=== PATIENT | female | born 1960 ===

== ENCOUNTER 2019-10-19 17:37 | Outpatient (CLI) | payer BC, SELFPAY | END 2019-10-19 17:38 | disposition home or self-care (01) | LOC: CHSLAB 17:39 | PROVIDERS: PCP Family Medicine; Visit Provider Specialist | DX: L01.00 Impetigo, unspecified (principal) | CPT/HCPCS: 87070; 87077; 87186; 87205 ==

== ENCOUNTER 2019-12-24 14:16 | Outpatient (CLI) | payer BC, SELFPAY ==
--- NOTE | ~2019-12-24 | CT_ITS ---
EXAMINATION: CT lung screening DATE: 12/24/2019 14:40 INDICATION: Personal history of nicotine dependence. TECHNIQUE: Computed tomography (CT) of the chest was performed without intravenous contrast. The dose -length product was 70.71 mGy-cm. Automated exposure control and iterative reconstruction technique w ere employed. COMPARISON: None FINDINGS: Heart size normal. No thoracic lymphadenopathy. No pleural or pericardial effusion. Mild at herosclerosis of the aorta and coronary arteries. Visualized aspects of the upper abdomen are unremar kable. There are scattered calcified pulmonary nodules, consistent with chronic granulomatous disease . No endobronchial lesions. No suspicious pulmonary nodules or masses. No acute osseous abnormality. Mild thoracic spondylosis. IMPRESSION: 1. Lung-RADS category 1: Negative. Continue annual screening with noncontrast low-dose chest CT in 12 months. Reviewed, dictated and finalized at location A. IMPRESSION: 1. Lung-RADS category 1: Negative. Continue annual screening with noncontrast l ow-dose chest CT in 12 months.
== END 2019-12-24 14:17 | disposition home or self-care (01) ==
LOC: CHSIMG 14:18
PROVIDERS: PCP Family Medicine; Visit Provider Family Medicine
DX: Z87.891 Personal history of nicotine dependence (principal)
CPT/HCPCS: G0297

== ENCOUNTER 2020-01-07 15:36 | Outpatient (CLI) | payer BC, SELFPAY | END 2020-01-07 15:37 | disposition home or self-care (01) | LOC: CHSLAB 15:37 | PROVIDERS: PCP Nurse Practitioner Family; Visit Provider Nurse Practitioner Family | DX: B95.8 Unspecified staphylococcus as the cause of diseases classified elsewhere (principal) | CPT/HCPCS: 36415; 87040 ==

== ENCOUNTER 2020-01-15 12:48 | Outpatient (CLI) | payer BC, SELFPAY ==
[2020-01-15 13:06] LABS: Basophils Absolute Auto 0.04 K/mm3 (0.00-0.10); Basophils Percent Auto 0.6 % (0.0-1.0); Eosinophils Absolute Auto 0.27 K/mm3 (0.02-0.50); Eosinophils Percent Auto 3.9 % (1.0-6.0); Hematocrit 40.6 % (35.0-49.0); Hemoglobin 13.3 g/dL (12.0-15.0); Immature Granulocyte Absolute 0.01 K/mm3 (0.00-0.00); Immature Granulocyte Percent A 0.1 % (0.0-0.0); Lymphocytes Absolute Auto 2.09 K/mm3 (1.10-4.50); Lymphocytes Percent Auto 29.8 % (18.0-42.0); Mean Corpuscular HGB Conc 32.8 g/dL (32.0-36.0); Mean Corpuscular Hemoglobin 30.6 pg (27.0-31.0); Mean Corpuscular Volume 93.5 fL (78.0-102.0); Mean Platelet Volume 10.5 fl (9.2-11.8); Monocytes Absolute Auto 0.53 K/mm3 (0.10-0.90); Monocytes Percent Auto 7.6 % (2.0-11.0); Neutrophils Absolute Auto 4.1 K/mm3 (1.7-7.2); Platelet Count Result 246 K/mm3 (150-420); Red Blood Count 4.34 M/mm3 (4.20-5.40); Red Cell Distribution Width 12.2 % (11.6-14.4)
[2020-01-15 14:15] LABS: Erythrocyte Sedimentation Rate 23 mm/hr (0-20)
[2020-01-15 14:18] LABS: Alanine Aminotransferase 18 U/L (14-59); Albumin Level 3.6 g/dL (3.4-5.0); Alkaline Phosphatase 129 U/L (46-116); Aspartate Amino Transferase 18 U/L (15-37); Bilirubin,Total 0.6 mg/dL (0.00-1.00); Blood Urea Nitrogen 9 mg/dL (7-18); Calcium 8.9 mg/dL (8.5-10.1); Carbon Dioxide 31 mmol/L (21-32); Chloride 103 mmol/L (98-108); Estimated Glomerular Filt Rate > 60; Glucose 87 mg/dL (70-99); Osmolality Calculated 285 mOsm/kg (285-295); Sodium 139 mmol/L (136-145); Total Protein 7.3 g/dL (6.4-8.2)
== END 2020-01-15 12:49 | disposition home or self-care (01) ==
LOC: CHSLAB 12:50
PROVIDERS: PCP Family Medicine; Visit Provider Specialist
DX: L29.9 Pruritus, unspecified (principal)
CPT/HCPCS: 36415; 80053; 84443; 85025; 85652

== ENCOUNTER 2022-11-19 08:54 | Outpatient (CLI) | payer MEDICAID, SELFPAY ==
--- NOTE | ~2022-11-19 | XR_ITS ---
EXAMINATION: XR knee LT min 4V DATE: 11/19/2022 09:16 INDICATION: Left knee pain. TECHNIQUE: 4 views of left knee including weightbearing views were obtained. COMPARISON: Left knee radiographs 12/29/2012 FINDINGS: Bone alignment is normal. No fracture. There is mild tricompartmental osteoarthritis. There is a large knee joint effusion. IMPRESSION: 1. Mild left knee osteoarthritis. 2. Large left knee joint effusion. Reviewed, dictated and finalized at location A.
== END 2022-11-19 08:55 | disposition home or self-care (01) ==
LOC: CHSIMG 08:57
PROVIDERS: PCP Family Medicine; Visit Provider Orthopaedic Surgery
DX: M25.562 Pain in left knee (principal); M17.12 Unilateral primary osteoarthritis, left knee; M25.462 Effusion, left knee
CPT/HCPCS: 73564

== ENCOUNTER 2022-11-23 08:04 | Outpatient (CLI) | payer MEDICAID, SELFPAY ==
--- NOTE | ~2022-11-23 | MR_ITS ---
EXAMINATION: MR knee LT wo con DATE: 11/23/2022 09:26 INDICATION: Left knee pain. Internal derangement. TECHNIQUE: Magnetic resonance imaging (MRI) of the left knee was performed without intravenous contra st. Sequences included axial PD-weighted FS FSE, coronal PD-weighted FSE and PD-weighted FS FSE, sagi ttal PD-weighted FSE, and sagittal T2-weighted FS FSE. COMPARISON: Left knee radiograph 11/19/2022 FINDINGS: Medial compartment: There is a radial tear of body of medial meniscus. There is partial-thickness cartilage loss of femor al condyle, deep at the medial articular surface where there is moderate subchondral edema-like marro w signal intensity. There is shallow partial-thickness cartilage loss of femoral condyle with mild kenney bchondral edema-like marrow signal intensity medially. Marginal osteophytes are noted. Lateral compartment: The lateral meniscus is normal. Lateral compartment cartilage is normal. Patellofemoral compartment: There is deep cartilage fissuring of patellar medial facet. Trochlear cartilage is normal. Ligaments and tendons: The anterior and posterior cruciate ligaments are normal. There is edema around medial collateral lig ament, consistent with mild sprain. There are changes of prior sprain of fibular collateral ligament characterized by thickening and increased signal intensity proximally. The patellar tendon is normal. Fluid: There is a large knee joint effusion. IMPRESSION: 1. Moderate chondrosis of medial and patellofemoral compartments. 2. Tear of medial meniscus. 3. Mild medial collateral ligament sprain (grade 1). 4. Large knee joint effusion. Reviewed, dictated and finalized at location A.
== END 2022-11-23 08:05 | disposition home or self-care (01) ==
LOC: CHSIMG 08:05
PROVIDERS: PCP Family Medicine; Visit Provider Orthopaedic Surgery
DX: M25.562 Pain in left knee (principal); M22.2X2 Patellofemoral disorders, left knee; S83.242A Other tear of medial meniscus, current injury, left knee, initial encounter; S83.412A Sprain of medial collateral ligament of left knee, initial encounter; M25.462 Effusion, left knee
CPT/HCPCS: 73721

== ENCOUNTER 2022-12-20 11:20 | Outpatient (CLI) | payer MEDICAID, SELFPAY ==
--- NOTE | 2022-12-20 11:32 | ECG_ITS ---
Measurements Intervals [place] Rate: 60 P: 35 AR: 140 QRS: 37 QRSD: 92 T: 56 QT: 408 QTc: 408 Interpretive Statements SINUS RHYTHM NORMAL ECG NO PREVIOUS ECG AVAILABLE FOR COMPARISON Electronically Signed On 12-20-2022 11:47:45 CDT by Brad Baires D.O.
== END 2022-12-20 11:21 | disposition home or self-care (01) ==
PROVIDERS: PCP Family Medicine; Visit Provider Orthopaedic Surgery
DX: F17.200 Nicotine dependence, unspecified, uncomplicated (principal); Z01.818 Encounter for other preprocedural examination
CPT/HCPCS: 93005

== ENCOUNTER 2022-12-24 04:10 | Day surgery (SDC) | payer MEDICAID, SELFPAY ==
[2022-12-16 12:32] VITALS: BMI 25.7
--- NOTE | 2022-12-16 12:42 | PC.NURSE ---
Addendum entered by Yari Canada RN 12/16/22 12:48: PT TO TAKE ESCITALOPRAM AND INHALERS MORNING OF SURGERY, STOP VITAMIN 3 DAYS PRIOR TO SURGERY Original Note: Report to the Outpatient Waiting Room, entrance under the [facility] located off [facility], at time _1100_ on date 12/14/22_. Planned Procedure Time: _1300_. Time changes happen often and if your time is changed the preop area will call you the afternoon before. - You and your visitor will be asked to self-screen and do not enter if you have any COVID symptoms. - A mask is optional within the hospital at this time. Patients may have clear liquids (water, carbonated beverages, clear teas, apple juice) until 3 hours prior to surgery with a maximum of 20 ounces. - No food from midnight until time of surgery - Infants may have breast milk until 4 hours before surgery, formula 6 hours prior to surgery. - Children will be allowed to drink immediately following surgery. If applicable, please bring a bottle or sippy cup to assist with drinking. Juice, water, soda, and popsicles are readily available. For infants on formula, please bring formula the day of surgery. Pacifiers are allowed. Take the following medications with a SIP of water the morning of surgery: DO NOT STOP ANY OF YOUR OTHER PRESCRIPTION MEDICATIONS PRIOR TO SURGERY ?EXCEPT THE FOLLOWING Medications to discontinue per physician Date to take last dose Please no make-up, nail telugu, hairspray, perfume, deodorant, or body powder the day of surgery. No jewelry (including any body piercings) or valuables the day of surgery, leave them at home. Please take a shower or bath the night before, or the morning of, surgery with an antibacterial soap. Wear comfortable, loose fitting clothing. Children are encouraged to wear pajamas. - Jewelry must be removed prior to entering the operating room. Rings and piercings that are not removed may be cut off. - The hospital will not accept responsibility for valuables. - Please leave all valuables, including medications, at home the day of surgery. If you are going home after surgery, a licensed delivery driver must drive you home. - NO public transportation without another adult if you receive anesthesia. - We recommend that an adult stay with you for 24 hours following discharge. - We also recommend that you do not drive, make important decision, drink alcoholic beverages, or take any drugs that were not prescribed by your health care provider for at least 24 hours after your discharge time. For Pediatric surgeries, we recommend two adults accompany the child home. Follow any additional instructions given to you from your surgeon. If you or anyone in your household have experienced Covid symptoms in the past week, please notify your surgeon or the nurse liaison at the phone number below for possible testing. Telephone instructions given to ___MARY and asked if any additional questions and then verbalized understanding. Patient advised to call surgeon office or pre surgery nurse liaison [phone] if any additional questions.
[2022-12-24] VITALS (14 sets, daily range): BP systolic 136–175; BP diastolic 64–87; PULSE 51–76; RESP 14–16; TEMP 36.1–36.7; O2SAT 90–100; BMI 25.7
--- NOTE | 2022-12-24 08:28 | WPDANESEPPF ---
Anes - Initial Pre Proc Eval Procedure: Operation Date: 12/24/22 13:00 Proposed Procedures p Left Knee Arthroscopy - Guido Hamm MD Date/Time: 12/24/22 08:28 Surgeon: Guido Hamm MD Pre Op Diagnosis: Left Knee medial meniscus tear Patient Data Age: 62 Gender: F Height: 1.63 m Weight: 68 kg Allergies Allergy/AdvReac Type Severity Reaction Status Date / Time No Known Allergies Allergy Verified 12/24/22 11:21 Home Medications Medication Instructions Recorded Confirmed Type albuterol sulfate 90 mcg/actuation 1 inh inhalation Q4H PRN shortness 03/18/22 12/24/22 Rx aerosol inhaler of breath or wheezing #6.7 grams escitalopram oxalate 20 mg tablet See Rx Instructions .Route 03/18/22 12/16/22 Rx .COMPLEX #90 tabs cholecalciferol (vitamin D3) 25 25 mcg PO DAILY 12/16/22 12/24/22 History mcg (1,000 unit) tablet (Vitamin D3) tiotropium bromide 2.5 1 puff inhalation BID 12/16/22 12/24/22 History mcg/actuation mist for inhalation (Spiriva Respimat) chlorhexidine gluconate 4 % 1 applic topical DAILY #237 mL 12/18/22 Rx topical liquid (Hibiclens) hydrocodone 5 mg-acetaminophen 325 1 tablet PO Q12H PRN pain #20 tabs 12/24/22 Rx mg tablet Patient hx anesthesia problems: none Family hx anesthesia problems: none Results Review: All pre-operative results and documents have been reviewed as part of the pre-operative evaluation. [facility] Past Medical History Medical History Bronchitis COPD (chronic obstructive pulmonary disease) De Quervain's disease (radial styloid tenosynovitis) ARLETTE (generalized anxiety disorder) Left wrist pain Nicotine dependence Surgical History Surgical History History of shoulder surgery Family History Family History (Updated 12/19/22 @ 11:29 by Angely Flood CMA) Unknown Hypertension Diabetes mellitus Hyperlipidemia Arthritis Cerebrovascular accident Social History Social History Smoking packs per day: 1 Smoking cigarettes per day: 20.0 Years smoked: 40 Smoking pack-years: 40.00 Smoking status: Current every day smoker Tobacco type: cigarettes Alcohol intake: former Substance use: never Substance use type: does not use Living arrangements: with family Additional living arrangements comments: Occupation/Education: occupation Additional occupation/education comments: [employer] Gender identity (if verbalized by the patient): Female Spiritual care concerns: No Anes - Eval Final PreProcedure Day of Procedure 12/24/22 08:28 Patient weight: overweight Heart: regular rate and rhythm Lungs: clear to auscultation Airway: Mallampati scale class II Neurological: alert and oriented Last oral intake: >/= 8 hours ASA classification: III Emergent: no Anesthetic plan: proceed Anesthesia type and monitoring: general LMA and standard monitoring Results Review: All pre-operative results and documents have been reviewed as part of the pre-operative evaluation. Informed Consent: The patient's anesthetic plan and its attendant risks and benefits were discussed with the patient/family/POA. Questions were solicited and answers provided to the satisfaction of the patient/family/POA.
--- NOTE | 2022-12-24 08:39 | WPDHPUPDATE1 ---
History and Physical Update Update Date/Time: 12/24/22 08:39 History and Physical has been reviewed, including an updated exam of the patient. There are NO changes in the patient's condition. Risks, benefits, and alternatives have been discussed and questions answered. Patient agrees to proceed with procedure.
[2022-12-24] MEDS: LACTATED RINGERS 1,000 ML 30 ML IV CONT (11:16)
[2022-12-24] MEDS: ACETAMINOPHEN 500 MG TABLET 1000 MG PO (11:17)
[2022-12-24] MEDS: CELECOXIB 200 MG CAPSULE PO (11:17)
--- NOTE | 2022-12-24 12:05 | SUR.PREOP ---
1205- Patient noted to have two reddened mosquito bites below left knee and Dr. Hamm notified. Dr. Hamm examined mosquito bites and said OK to proceed with procedure.
[2022-12-24] MEDS: ceFAZolin 2 GM/D5W 50 ML 2 GM/50 ML BAG IVPB (12:13)
[2022-12-24] MEDS: BUPivacaine HCL 0.5% 10 ML AMP 30 ML INFILTRATE (12:25)
--- NOTE | 2022-12-24 12:55 | P.OP_ITS ---
Procedure Note - Detailed Date of Procedure 12/24/22 Pre-op Diagnosis Left Knee medial meniscus tear Post-op Diagnosis Same Procedure Performed LEFT KNEE SCOPE Surgeon Guido Hamm MD Anesthesia General Description of Procedure PATIENT WAS TAKEN TO THE OR. LEFT LEG WAS PREPPED AND DRAPED STERILE. TROCARS WE RE PLACED IN THE USUAL FASHION. CAMERA WAS INTRODUCED. THERE WAS CHONDROMALACIA TO THE PATELLA FEMORAL JOINT. THERE WAS A LOT OF SYNOVITIS IN ALL COMPARTMENTS. THE MEDIAL COMPARTMENT SHOWED CHONDROMALACIA TO THE MEDIAL FEMORAL CONDYLE. A SHAVER WAS USED TO PREFORM A CHONDROPLASTY. THERE WAS A COMPLEX MEDIAL MENISCUS TEAR. THE TEAR WAS RESECTED WITH A BITER AND A SHAVER DOWN TO A SMOOTH BASE. ABOUT 30% OF THE MENISCUS WAS REMOVED. THE ACL WAS INTACT. THE LATERAL MENISCUS WAS TORN AND WAS RESECTED AT THE MID SUBSTANCE. THE LATERAL COMPARTMENT HAD MINIMAL CHONDROMALACIA. CHONDROPLASTY WAS PREFORMED. A SYNOVECTOMY WAS PREFORMED WELL. THE PATELLO FEMORAL JOINT UNDERWENT CHONDROPLASTY. THERE WAS GRADE 2 CHONDROMALACIA. SYNOVECTOMY WAS PREFORMED IN THE SUPERIOR MEDIAL COMPARTMENT. THE WOUNDS WERE APPROXIMATED WITH 4.0 NYLON. STERILE DRESSING WAS APPLIED. PATIENT WAS EXTUBATED. Estimated Blood Loss -5.0 Complications No immediate complications Condition Stable Disposition PACU
[2022-12-24] MEDS: fentaNYL CITRATE INJ (*CRX) 100 MCG/2 ML VIAL 25 MCG IV PUSH ×3 (13:29→13:47)
--- NOTE | 2022-12-24 14:03 | ECG_ITS ---
Measurements Intervals [place] Rate: 54 P: 83 [place]: 175 QRS: 39 QRSD: 98 T: 65 QT: 436 QTc: 414 Interpretive Statements SINUS BRADYCARDIA BORDERLINE ECG COMPARED TO ECG 12/20/2022 11:36:27 SINUS BRADYCARDIA NOW PRESENT Electronically Signed On 12-25-2022 7:00:22 CDT by Brad Baires D.O.
--- NOTE | 2022-12-24 14:50 | SUR.PHASEI ---
1400: ectopy noted. Dr. Valiente notified. see provider communication assessment .
--- NOTE | 2022-12-24 14:51 | SUR.PHASEI ---
1420: Cardiology at bedside obtaining 12 lead ekg.
== END 2022-12-24 15:38 | disposition home or self-care (01) ==
PROVIDERS: PCP Family Medicine; Visit Provider Orthopaedic Surgery
PROC: (CPT 29870; principal; 2022-12-24 13:00)
DX: M23.332 Other meniscus derangements, other medial meniscus, left knee (principal); M23.362 Other meniscus derangements, other lateral meniscus, left knee; M65.862 Other synovitis and tenosynovitis, left lower leg; M94.262 Chondromalacia, left knee; J44.9 Chronic obstructive pulmonary disease, unspecified; F41.1 Generalized anxiety disorder; Z79.51 Long term (current) use of inhaled steroids; F17.210 Nicotine dependence, cigarettes, uncomplicated
CPT/HCPCS: 29880; 93005; A9270; J0690; J1100; J2250; J2405; J2704; J3010; J7120